=== PATIENT | female | born 1980 | race Caucasian/White ===

== ENCOUNTER → 2021-01-01 10:58 | Outpatient (BNVA) | payer OTHER, SELFPAY | PROVIDERS: Visit Provider Family Medicine | DX: Z13.6 Encounter for screening for cardiovascular disorders (principal); E66.9 Obesity, unspecified | CPT/HCPCS: 80053; 80061; 82306; 85025 ==

== ENCOUNTER → 2021-01-17 08:46 | Outpatient (BNVA) | payer OTHER, SELFPAY | PROVIDERS: Visit Provider Nurse Practitioner Family | DX: Z20.822 Contact with and (suspected) exposure to COVID-19 (principal) | CPT/HCPCS: 87635 ==

== ENCOUNTER → 2021-04-02 10:41 | Outpatient (BNVA) | payer SELFPAY | PROVIDERS: Visit Provider Family Medicine | DX: E55.9 Vitamin D deficiency, unspecified (principal) | CPT/HCPCS: 82306 ==

== ENCOUNTER → 2021-05-29 10:10 | Outpatient (BNVA) | payer OTHER, SELFPAY | PROVIDERS: PCP Family Medicine; Visit Provider Family Medicine | DX: Z00.00 Encounter for general adult medical examination without abnormal findings (principal); Z13.6 Encounter for screening for cardiovascular disorders | CPT/HCPCS: 80048; 80061; 80323; 83036 ==

== ENCOUNTER → 2022-04-29 11:10 | Outpatient (BNVA) | payer OTHER, SELFPAY | PROVIDERS: PCP Family Medicine; Visit Provider Family Medicine | DX: F33.1 Major depressive disorder, recurrent, moderate (principal); Z13.6 Encounter for screening for cardiovascular disorders | CPT/HCPCS: 80053; 80061; 80323; 83036; 85025 ==

== ENCOUNTER 2022-05-03 11:50 | Outpatient (CLI) | payer OTHER, SELFPAY ==
--- NOTE | 2022-05-03 11:58 | MM_ITS ---
WS: [id number] BILATERAL SCREENING DIGITAL TOMOSYNTHESIS MAMMOGRAM WITH CAD HISTORY: screening mammogram COMPARISON: None available. Bilateral CC and MLO views with tomosynthesis and synthetic mammography submitted. Computer aided det ection analyzed. Breast composition: The breasts are heterogeneously dense, which may obscure small masses. No suspici ous masses, microcalcifications or architectural distortion. Scattered asymmetries within each breast . Greater distribution of asymmetries in the RIGHT breast. No distortion. Benign calcifications RIGHT breast. MM/[place] [id number] IMPRESSION: BI-RADS: 2-Benign FOLLOW UP: 1 Year Follow-up
== END 2022-05-03 11:51 | disposition home or self-care (01) ==
LOC: RAD 11:50
PROVIDERS: PCP Family Medicine; Visit Provider Family Medicine
DX: Z12.31 Encounter for screening mammogram for malignant neoplasm of breast (principal)
CPT/HCPCS: 77063; 77067

== ENCOUNTER 2023-04-18 11:09 | Outpatient (CLI) | payer OTHER, SELFPAY ==
[2023-04-18 12:04] LABS: Basophils % 0.3 %; Eosinophils # 0.1 10^3/uL (0.0-0.8); Eosinophils % 1.3 %; Hematocrit 40.4 % (36-47); Lymphocytes # 1.7 10^3/uL (0.8-4.8); Lymphocytes % 23.7 %; Mean Corpuscular HGB Conc 32.7 g/dL (30-55); Mean Corpuscular Hemoglobin 27.3 pg (27-33); Mean Corpuscular Volume 83.6 fl (85-98); Mean Platelet Volume 10.1 fL (7.4-10.4); Monocytes # 0.6 10^3/uL (0.2-0.9); Monocytes % 8.7 %; Neutrophils % 65.7 %; Nucleated Red Blood Cells % 0 %; Platelet Count 273 10^3/cmm (157-399); Red Blood Count 4.83 10^6/uL (3.85-5.65); Red Cell Distribution Width 12.4 % (12.1-15.1)
[2023-04-18 12:18] LABS: Estmated Average Glucose 100; Hemoglobin A1C 5.1 % (4.0-6.0)
[2023-04-18 12:28] LABS: Alanine Aminotransferase 14 U/L (0-33); Alkaline Phosphatase 67 U/L (35-105); Anion Gap 13.2 (5-19); Aspartate Amino Transferase 16 U/L (0-32); Blood Urea Nitrogen 13 mg/dL (6-20); Calcium 8.7 mg/dL (8.5-10.5); Carbon Dioxide 22 mmol/L (22-29); Chloride 101 mmol/L (98-107); Chol HDL Ratio 4.93 mg/dL (0.0-4.40); Cholesterol 202 mg/dL (0-200); Globulin 2.9 g/dL (1.3-4.6); Glomerular Filtration Rate 69.3 mL/min (90-130); Glucose 89 mg/dL (65-115); HDL Cholesterol 41 mg/dL (60-100); LDL Cholesterol Calculated 127 mg/dL (50-129); Osmolality Calculated 276 mOsm/kg (285-295); Potassium 3.2 mmol/L (3.5-5.1); Sodium 133 mmol/L (136-145); Total Bilirubin 0.4 mg/dL (0.15-1.2); Total Protein 6.9 g/dL (6.6-8.7); Triglycerides 169 mg/dL (0-150)
[2023-04-22 18:30] LABS: Cotinine, Urine <2 ng/mL; Nicotine, Urine <2 ng/mL
== END 2023-04-18 11:10 | disposition home or self-care (01) ==
LOC: LAB 11:11
PROVIDERS: PCP Family Medicine; Visit Provider Family Medicine
DX: Z13.6 Encounter for screening for cardiovascular disorders (principal)
CPT/HCPCS: 36415; 80053; 80061; 80323; 83036; 85025

== ENCOUNTER 2023-05-05 10:02 | Outpatient (CLI) | payer OTHER, SELFPAY ==
--- NOTE | 2023-05-05 10:09 | MM_ITS ---
WS: [id number] BILATERAL SCREENING DIGITAL TOMOSYNTHESIS MAMMOGRAM WITH CAD HISTORY: screening COMPARISON: None available. Bilateral CC and MLO views with tomosynthesis and synthetic mammography submitted. Computer aided det ection analyzed. Technically difficult evaluation. Very little pectoralis muscle is included on the l ateral projections. Breast composition: There are scattered areas of fibroglandular density. No suspicious masses, microc alcifications or architectural distortion. Patchy asymmetric fibroglandular densities, greatest throu ghout the RIGHT breast. This is an asymmetric finding. No suspicious masses. Benign calcifications RI GHT breast. IMPRESSION: MM/[place] [id number] BI-RADS: 2-Benign FOLLOW UP: 1 Year Follow-up
== END 2023-05-05 10:03 | disposition home or self-care (01) ==
LOC: RAD 10:02
PROVIDERS: PCP Family Medicine; Visit Provider Family Medicine
DX: Z12.31 Encounter for screening mammogram for malignant neoplasm of breast (principal)
CPT/HCPCS: 77063; 77067

== ENCOUNTER → 2023-09-16 16:43 | Outpatient (BNVA) | payer OTHER, SELFPAY | PROVIDERS: PCP Family Medicine; Visit Provider Family Medicine | DX: R10.13 Epigastric pain (principal) | CPT/HCPCS: 87338 ==

== ENCOUNTER 2023-10-08 06:15 | Outpatient (CLI) | payer OTHER, SELFPAY ==
--- NOTE | 2023-10-08 06:15 | US_ITS ---
WS: [id number] RIGHT UPPER QUADRANT ULTRASOUND HISTORY: epigastric pain COMPARISON: None available. Liver: 15.0 cm in length. Normal size liver and echogenicity. No bile duct dilatation or mass. Portal Vein: Normal hepatopetal flow with monophasic waveform. Gallbladder: Gallbladder is contracted with shadowing. No fluid identified within the gallbladder. Th is is consistent with a contracted gallbladder around stones. The wall does appear prominent. No ang cholecystic fluid. Gallbladder wall measures up to 6 mm. CBD: 0.5 cm Pancreas: Not visualized. The body is normal. Right kidney: 9.8 cm in length. Normal size and echogenicity. No hydronephrosis or mass. Aorta and IVC: Unremarkable abdominal aorta and IVC. No ascites. US/US abdomen limited [id number] IMPRESSION: 1. Cholelithiasis. Cholelithiasis around a contracted gallbladder with wall th ickening. 2. No bile duct dilatation.
== END 2023-10-08 06:16 | disposition home or self-care (01) ==
PROVIDERS: PCP Family Medicine; Visit Provider Family Medicine
DX: K80.20 Calculus of gallbladder without cholecystitis without obstruction (principal); K82.8 Other specified diseases of gallbladder
CPT/HCPCS: 76705

== ENCOUNTER → 2023-10-27 09:17 | Outpatient (BNVA) | payer OTHER, SELFPAY | PROVIDERS: PCP Family Medicine; Visit Provider Family Medicine | DX: E87.6 Hypokalemia (principal) | CPT/HCPCS: 80053 ==

== ENCOUNTER 2023-11-11 10:22 | Day surgery (SDC) | payer OTHER, SELFPAY ==
--- NOTE | 2023-11-11 10:41 | W.PM.OPSUD ---
Surgery/Procedure H&P Update DATE OF PROCEDURE: November 11, 2023 DATE H&P PERFORMED: 11/05/23 H&P UPDATE INFORMATION: I have reviewed H&P completed within last 30 days, I have examined patient prior to procedure, No changes to prior documentation and Changes to prior documentation as noted here PLANNED PROCEDURE: Operation Date: 11/11/23 11:25 Proposed Procedures p EGD 02717, K21.9(Not Applicable) - Yasmany Paulino MD
--- NOTE | 2023-11-11 10:48 | ANES.PREANE2 ---
Pre-Anesthetic Assessment Height/Weight: Height 1.65 m Operation Date: 11/11/23 11:25 Proposed Procedures p EGD 84693, K21.9(Not Applicable) - Yasmany Paulino MD Familial anesthetic complications: None Was Beta Alyx taken within 24 hours: N/A Was Clonidine taken within 24 hours: N/A Last intake: > 8 hrs Social No alcohol and No tobacco Exam alert, oriented x 3, clear to auscultation bilaterally and regular rate & rhythm Airway Mallampati: Class II Dentition: other (missing) GI Gastroesophageal Reflux Disease Anesthetic Plan ASA status: 1 Anesthesia: MAC Risk of > 500 ml blood loss (7ml/kg in children): No Medications/Allergies Home Medications Medication Instructions Recorded Confirmed Last Taken Type levocetirizine 5 mg tablet 5 mg PO DAILY PRN Allergy Symptoms 12/04/20 11/06/23 11/10/23 History (Allergy Relief (levocetirizine)) fluticasone propionate 50 1 spray intranasal BID PRN 10/24/21 11/06/23 Unknown History mcg/actuation nasal Congestion spray,suspension pantoprazole 40 mg tablet,delayed 40 mg PO DAILY #30 tabs 10/20/23 11/06/23 11/10/23 Rx release topiramate 25 mg tablet 25 mg PO BID #60 tabs 10/27/23 11/06/23 11/10/23 Rx sumatriptan succinate 100 mg tablet See Rx Instructions .Route 11/11/23 11/11/23 11/10/23 Rx .COMPLEX #9 tabs Allergies Allergy/AdvReac Type Severity Reaction Status Date / Time No Known Allergies Allergy Verified 11/06/23 09:51 [facility] Anesthesia Medical History Moderately severe major depression Gastroesophageal reflux disease Seasonal allergies Migraine without aura, intractable [place] spotted fever Diagnosed in [id number] Preeclampsia 2008 Surgical History [place] teeth removed Family History Mother Hypertension Heart failure Father , from combination off all three comorbidities Heart failure Hypertension Cancer Pancreatic, Skin Arthritis Grandmother Cancer Mother's side: Colon, Melanoma Hypertension Grandfather , on Mother's side Hypertension Heart attack Stroke Cancer Melanoma Social History Smoking and tobacco/nicotine status: never used tobacco/nicotine Quit status (tobacco/nicotine): has quit using Year quit tobacco: 2002 Second hand smoke exposure: No Alcohol intake: current Alcohol intake frequency: holidays/special occasions only Substance/Drug Use: never Adopted: No Caregiver/support person: No Lives independently: Yes Household members: spouse and children Housing: House Marital status: Number of children: 2 Number of grandchildren: 0 Highest education level completed: Some College, No Degree service: No Current occupational status: unemployed Current occupational exposures/hazards: No Pets and animals: Yes Pets & animals: cat(s), dog(s) and other Pets & animal details: rats, mice Sexually active: Yes Current gender identity: Female Female Reproductive History Date of last menstrual period: 10/20/23 Data Anesthesia Cardiac Studies: No Data to Display
[2023-11-11 10:49] VITALS: BP 115/95; PULSE 102; RESP 17; TEMP 36.6; O2SAT 97; BMI 33.3
[2023-11-11] MEDS: sodium chloride 0.9% 1,000 ML 30 ML IV (10:58)
[2023-11-11 11:15] LABS: OR HCG Qualitative Urine Negative (Negative)
[2023-11-11 11:26] VITALS: BP 104/74; PULSE 71; TEMP 36.3; O2SAT 96
[2023-11-11 11:36] VITALS: BP 101/65; PULSE 65; RESP 18; TEMP 36.1; O2SAT 95
--- NOTE | 2023-11-11 11:46 | ANE.PACU2 ---
Inpatient post-anesthesia follow up: Vital signs: Temperature 97 F Pulse Rate 65 Respiratory Rate 18 Blood Pressure 101/65 Pulse Oximetry 98 Oxygen Delivery Me thod Room Air Oxygen Flow Rate Fraction of Inspir ed Oxygen Hydration adequate: Yes Nausea and vomiting: No Pain level: 0 Mental status: Baseline
--- NOTE | 2023-11-11 11:47 | P.ANESASSM_ITS ---
<Statement entered by Linda Iglesias - 11/13/23 06:32> created in error- see completed pre anesthesia eval. Pre-Anesthetic Assessment Height/Weight: Height 1.65 m Weight 90.718 kg Temp Pulse Resp BP Pulse Ox O2 Del Method 97 F L 65 18 101/65 95 Room Air 11/11/23 11:36 11/11/23 11:36 11/11/23 11:36 11/11/23 11:36 11/11/23 11:36 11/11/23 11:36 Preop Diagnosis: GERD Operation Date: 11/11/23 11:25 Proposed Procedures p EGD 81852, K21.9(Not Applicable) - Yasmany Paulino MD Familial anesthetic complications: none Was Beta Alyx taken within 24 hours: N/A Was Clonidine taken within 24 hours: N/A Last intake: Intake Last Liquid Date 11/10/23 Last Liquid Time 22:30 Last Solid Date 11/10/23 Last Solid Time 20:30 Social No alcohol and No tobacco Exam alert, oriented x 3 and clear to auscultation bilaterally Airway Mallampati: Class II Dentition: full History/ROS No significant history except as noted Pulmonary None reported CV/HEM None reported None reported Hepatic None reported GI Gastroesophageal Reflux Disease Metabolic None reported Medications/Allergies Home Medications Medication Instructions Recorded Confirmed Last Taken Type levocetirizine 5 mg tablet 5 mg PO DAILY PRN Allergy Symptoms 12/04/20 11/06/23 11/10/23 History (Allergy Relief (levocetirizine)) fluticasone propionate 50 1 spray intranasal BID PRN 10/24/21 11/06/23 Unknown History mcg/actuation nasal Congestion spray,suspension topiramate 25 mg tablet 25 mg PO BID #60 tabs 10/27/23 11/06/23 11/10/23 Rx pantoprazole 40 mg tablet,delayed 40 mg PO BID #60 tabs 11/11/23 Unknown Rx release sumatriptan succinate 100 mg tablet See Rx Instructions .Route 11/11/23 11/11/23 11/10/23 Rx .COMPLEX #9 tabs Allergies Allergy/AdvReac Type Severity Reaction Status Date / Time No Known Allergies Allergy Verified 11/06/23 09:51 Current Medications Generic Name Dose Route Start Last Admin Trade Name Freq PRN Reason Stop Dose Admin Sodium Chloride 1,000 mls @ 30 mls/hr 11/11/23 10:30 11/11/23 10:58 Sodium Chloride 0.9% IV 11/12/23 10:29 30 mls/hr .Q24H ADAL Administration PFSH Anesthesia Medical History Moderately severe major depression Gastroesophageal reflux disease Seasonal allergies Migraine without aura, intractable [place] spotted fever Diagnosed in [id number] Preeclampsia 2009 Surgical History [place] teeth removed Family History Mother Hypertension Heart failure Father , from combination off all three comorbidities Heart failure Hypertension Cancer Pancreatic, Skin Arthritis Grandmother Cancer Mother's side: Colon, Melanoma Hypertension Grandfather , on Mother's side Hypertension Heart attack Stroke Cancer Melanoma Social History Smoking and tobacco/nicotine status: never used tobacco/nicotine Quit status (tobacco/nicotine): has quit using Year quit tobacco: 2002 Second hand smoke exposure: No Alcohol intake: current Alcohol intake frequency: holidays/special occasions only Substance/Drug Use: never Adopted: No Caregiver/support person: No Lives independently: Yes Household members: spouse and children Housing: House Marital status: Number of children: 2 Number of grandchildren: 0 Highest education level completed: Some College, No Degree service: No Current occupational status: unemployed Current occupational exposures/hazards: No Pets and animals: Yes Pets & animals: cat(s), dog(s) and other Pets & animal details: rats, mice Sexually active: Yes Current gender identity: Female Female Reproductive History Date of last menstrual period: 10/20/23 Data Anesthesia Cardiac Studies: No Data to Display
--- NOTE | 2023-11-11 12:12 | ANE.PACU2 ---
Inpatient post-anesthesia follow up: Airway intact: Yes Vital signs: Temperature 97 F Pulse Rate 65 Respiratory Rate 18 Blood Pressure 101/65 Pulse Oximetry 95 Oxygen Delivery Me thod Room Air Oxygen Flow Rate Fraction of Inspir ed Oxygen Hydration adequate: Yes Nausea and vomiting: No Pain level: 1 Mental status: Baseline
== END 2023-11-11 12:12 | disposition home or self-care (01) ==
PROVIDERS: Student in an Organized Health Care Education/Training Program; PCP Family Medicine; Visit Provider Surgery
PROC: 0DJ08ZZ Inspection of Upper Intestinal Tract, Via Natural or Artificial Opening Endoscopic (ICD-10-PCS; CPT 43235; principal; 2023-11-11 11:25)
DX: K21.9 Gastro-esophageal reflux disease without esophagitis (principal); K29.50 Unspecified chronic gastritis without bleeding
CPT/HCPCS: 43239; 81025; 88305; 88342; J2704; J7030

== ENCOUNTER 2023-11-14 12:25 | Outpatient (CLI) | payer OTHER, SELFPAY ==
[2023-11-14] MEDS: iohexol 350 mg/mL 500 mL Btl (per mL) PO (12:39)
[2023-11-14] MEDS: iohexol 350 mg/mL 500 mL Btl (per mL) IV (12:39)
--- NOTE | 2023-11-14 13:30 | CT_ITS ---
WS: [id number] CT ABDOMEN AND PELVIS WITH CONTRAST HISTORY: abdominal pain TECHNIQUE: Imaging performed of the abdomen and pelvis with IV contrast. Single phase imaging of the abdomen. Coronal and sagittal reformats are submitted. All CT scans at [facility] use at [address] one of these dose optimization techniques: automated exposure control; mA and/or kV adjustment per patient size (includes targeted exams where dose is matched to clinical indication); or iterative re construction. IV CONTRAST: Omnipaque 350; 100 mL IV. Oral contrast: Yes DLP: 539.73 mGy.cm COMPARISON: Ultrasound 10/08/2023 Lower thorax: Lung bases are clear. Heart is normal size. No hiatal hernia. Liver/biliary system: Normal size with no intrahepatic dilatation. Gallbladder: Gallbladder is slightly contracted. Innumerable stones are present within the gallbladde r. No wall thickening. Normal common bile duct. Pancreas: Normal size pancreas and pancreatic duct. No adjacent inflammation. Spleen: Normal size spleen. No mass or infarct. Adrenal glands: Normal. Right kidney: Normal. Left kidney: Normal. Aorta: Normal. Lymphadenopathy: None. Free fluid: None. GI tract: No GI tract obstruction. Normal appendix. No significant diverticular disease. Abdominal wall: Tiny umbilical hernia containing fat. Pelvis: Uterus is slightly enlarged and vascular and globular suggesting fibroids. There is displacem ent of the endometrium to the RIGHT. LEFT fundal fibroid measures 5.1 x 3.5 cm. Normal urinary bladde r. Bones: Unremarkable. CT/CT abdomen pelvis w con* [id number] IMPRESSION: 1. Cholelithiasis without evidence for acute cholecystitis. Numerous stones ar e present in the gallbladder. 2. Normal appendix. 3. No renal obstruction. 4. Enlarged uterus. Suspect LEFT uterine fibroid.
== END 2023-11-14 12:26 | disposition home or self-care (01) ==
LOC: RAD 12:26
PROVIDERS: PCP Family Medicine; Visit Provider Surgery
DX: K80.20 Calculus of gallbladder without cholecystitis without obstruction (principal); N85.2 Hypertrophy of uterus; R10.9 Unspecified abdominal pain
CPT/HCPCS: 74177; Q9967

== ENCOUNTER 2023-12-08 06:42 | Day surgery (SDC) | payer OTHER, SELFPAY ==
--- NOTE | 2023-12-07 15:34 | P.ANESASSM_ITS ---
Pre-Anesthetic Assessment Height/Weight: Height 5 ft 5 in Preop Diagnosis: Cholecystitis Operation Date: 12/08/23 08:15 Proposed Procedures p Laparoscopic Cholecystectomy 96751, K80.20(Not Applicable) - Yasmany Paulino MD Was Beta Alyx taken within 24 hours: N/A Was Clonidine taken within 24 hours: N/A Social No alcohol and No tobacco Exam alert, oriented x 3, clear to auscultation bilaterally and regular rate & rhythm Airway Submandibular: within normal limits Cervical ROM: within normal limits Mallampati: Class III Dentition: full Anesthetic Plan ASA status: 2 Anesthesia: General Other: No prior issues with anesthesia NPO since midnight History of seasonal allergies GERD on pantoprazole Does admit to chronic migraines occasionally Denies any cardiac or pulmonary issues Recent Labs 10/26 reviewed test negative Plan for GETA Risk of > 500 ml blood loss (7ml/kg in children): Yes, adequate IV access and fluids planned Medications/Allergies Home Medications Medication Instructions Recorded Confirmed Last Taken Type levocetirizine 5 mg tablet 5 mg PO DAILY PRN Allergy Symptoms 12/04/20 12/05/23 12/07/23 History (Allergy Relief (levocetirizine)) fluticasone propionate 50 1 spray intranasal BID PRN 10/24/21 12/05/23 Unknown History mcg/actuation nasal Congestion spray,suspension pantoprazole 40 mg tablet,delayed 40 mg PO BID #60 tabs 11/11/23 12/05/23 12/07/23 Rx release sumatriptan succinate 100 mg tablet See Rx Instructions .Route 11/11/23 12/05/23 12/02/23 Rx .COMPLEX #9 tabs topiramate 25 mg tablet 25 mg PO BID 11/25/23 12/05/23 12/07/23 History Allergies Allergy/AdvReac Type Severity Reaction Status Date / Time No Known Allergies Allergy Verified 11/25/23 11:30 [facility] Anesthesia Medical History Moderately severe major depression Gastroesophageal reflux disease Seasonal allergies Migraine without aura, intractable [place] spotted fever Diagnosed in [id number] Preeclampsia 2008 Surgical History [place] teeth removed Family History Mother Hypertension Heart failure Father , from combination off all three comorbidities Heart failure Hypertension Cancer Pancreatic, Skin Arthritis Grandmother Cancer Mother's side: Colon, Melanoma Hypertension Grandfather , on Mother's side Hypertension Heart attack Stroke Cancer Melanoma Social History Smoking and tobacco/nicotine status: never used tobacco/nicotine Quit status (tobacco/nicotine): has quit using Year quit tobacco: 2002 Second hand smoke exposure: No Alcohol intake: current Alcohol intake frequency: holidays/special occasions only Substance/Drug Use: never Adopted: No Caregiver/support person: No Lives independently: Yes Household members: spouse and children Housing: House Marital status: Number of children: 2 Number of grandchildren: 0 Highest education level completed: Some College, No Degree service: No Current occupational status: unemployed Current occupational exposures/hazards: No Pets and animals: Yes Pets & animals: cat(s), dog(s) and other Pets & animal details: rats, mice Sexually active: Yes Current gender identity: Female Female Reproductive History Date of last menstrual period: 12/05/23 Data Anesthesia Cardiac Studies: No Data to Display
[2023-12-08] VITALS (11 sets, daily range): BP systolic 101–139; BP diastolic 62–89; PULSE 68–91; RESP 16–20; TEMP 36.1–36.7; O2SAT 94–99; BMI 32.1
[2023-12-08 07:17] LABS: OR HCG Qualitative Urine Negative (Negative)
[2023-12-08] MEDS: scopolamine 1.5 Patch 1 PATCH TRANSDERMA (07:22)
[2023-12-08] MEDS: sodium chloride 0.9% 1,000 ML 30 ML IV (07:23)
--- NOTE | 2023-12-08 08:32 | P.HP_ITS ---
Same Day Surgery H&P Indication for Procedure/HPI DATE OF PROCEDURE: December 08, 2023 CHIEF COMPLAINT/INDICATIONFOR SURGICAL PROCEDURE: symptomatic cholelithiasis PREOP DIAGNOSIS: Cholecystitis PLANNED PROCEDURE: Operation Date: 12/08/23 08:15 Proposed Procedures p Laparoscopic Cholecystectomy 75092, K80.20(Not Applicable) - Yasmany Paulino MD Medications/Allergies* Home Medications Medication Instructions Recorded Confirmed Type levocetirizine 5 mg tablet 5 mg PO DAILY PRN Allergy Symptoms 12/04/20 12/05/23 History (Allergy Relief (levocetirizine)) fluticasone propionate 50 1 spray intranasal BID PRN 10/24/21 12/05/23 History mcg/actuation nasal Congestion spray,suspension topiramate 25 mg tablet 25 mg PO BID 11/25/23 12/05/23 History Allergies/Adverse Reactions Allergy/AdvReac Type Severity Reaction Status Date / Time No Known Allergies Allergy Verified 11/25/23 11:30 Current Medications: Generic Name Dose Route Start Last Admin Trade Name Freq PRN Reason Stop Dose Admin Sodium Chloride 1,000 mls @ 30 mls/hr 12/08/23 07:00 12/08/23 07:23 Sodium Chloride 0.9% IV 12/09/23 06:59 30 mls/hr .Q24H ADAL Administration Pertinent History/Comorbid Conditions* Medical History (Updated 11/21/23 @ 10:13 by Yasmany Paulino MD) Moderately severe major depression Gastroesophageal reflux disease Seasonal allergies Migraine without aura, intractable [place] spotted fever Diagnosed in [id number] Preeclampsia 2008 Surgical History (Updated 12/04/20 @ 13:30 by Cynthia Cates DO) [place] teeth removed Family History (Updated 12/04/20 @ 13:21 by Carmen Perez LPN) Father, from combination off all three comorbidities Grandfather, on Mother's side Heart failure Mother Father Arthritis Father Heart attack Grandfather Cancer Father Pancreatic, Skin Grandmother Mother's side: Colon, Melanoma Grandfather Melanoma Hypertension Mother Father Grandmother Grandfather Stroke Grandfather Social History Smoking and tobacco/nicotine status: never used tobacco/nicotine Quit status (tobacco/nicotine): has quit using Year quit tobacco: 2002 Second hand smoke exposure: No Alcohol intake: current Alcohol intake frequency: holidays/special occasions only Substance/Drug Use: never Adopted: No Caregiver/support person: No Lives independently: Yes Household members: spouse and children Housing: House Marital status: Number of children: 2 Number of grandchildren: 0 Highest education level completed: Some College, No Degree service: No Current occupational status: unemployed Current occupational exposures/hazards: No Pets and animals: Yes Pets & animals: cat(s), dog(s) and other Pets & animal details: rats, mice Sexually active: Yes Current gender identity: Female Pertinent Exam Findings alert, oriented x 3, clear to auscultation bilaterally and regular rate & rhythm Recommendations Surgery/Procedure today Coding Level of Care Code Acute Code for Chg Fwd
[2023-12-08] MEDS: ceFAZolin 2,000 mg SDV 2000 MG IVP (08:52)
--- NOTE | 2023-12-08 10:50 | PC.NURSE ---
updated patient's family at [id number]
[2023-12-08] MEDS: lidocaine-epi 1% 20 mL INJ INJECTION (12:09)
[2023-12-08] MEDS: BUPivacaine 0.25% INJ 10 mL INJECTION (12:09)
--- NOTE | 2023-12-08 12:20 | P.OP_ITS ---
Operative Report Date of procedure: December 08, 2023 Pre-op diagnosis: Symptomatic cholelithiasis Post-op diagnosis: Symptomatic cholelithiasis, chronic cholecystitis Post-op findings: Severe adhesions from the omentum to the gallbladder, causing encasing of the gallbladder portion that was attached to the liver. Upper one third of the gallbladder was not attached to the liver. Severe adhesions and inflammation noted to the level of the hepatocystic triangle making dissection almost impossible Procedure done: Laparoscopic subtotal cholecystectomy Surgeon: Yasmany Paulino MD Soubrette: ROBERTO OR STaff Estimated blood loss: 15 Complications: none Brief History: 43-year-old female with chronic abdominal pain who presented to my clinic for evaluation, after extensive workup which was positive for gallstones with side to proceed to the OR. Procedure: Patient was brought into the OR, patient was placed in the supine position and general anesthesia was given. The abdomen was prepped and draped in the usual sterile fashion. The abdomen was accessed via infraumbilical incision with an open technique, access on trocar was placed and fixed to the fascia with #0 Vicryl, initial pneumoperitoneum was obtained and laparoscopy showed no evidence of visceral injury during entry. Additional 5 mm trocars were placed in the epigastrium right upper quadrant and right flank positions. The gallbladder was identified on the right upper quadrant under the liver and it was noted to be encased by omentum, additional lysis was done with blunt and sharp dissection until the gallbladder fundus was able to be visualized and the gallbladder was elevated, the body of the gallbladder appear slightly contracted and there was significant inflammation surrounding the gallbladder, anatomy was not clear at the level of the infundibulum making dissection very difficult, I therefore decided to start my dissection with the lateral attachments of the gallbladder to the liver to allow for better exposure. Despite significant dissection both on the medial and lateral direction on the size of the gallbladder the visualization of the hepatocystic triangle was not achieved and therefore I decided to proceed with a top-down approach I started by removing the gallbladder from the liver bed with careful dissection with electrocautery, was able to remove the gallbladder down all the way down to the infundibulum, at this point several structures were noted entering to the gallbladder, I attempted additional dissection from the front end to try to individualize the cystic duct but due to severe inflammation this was not possible. I therefore took the decision to proceed with a subtotal cholecystectomy to prevent any ductal or arterial injury by proceeding with additional dissection. I did this by transecting the gallbladder at the level of the infundibulum using a 45 mm blue load Endo GERARDO stapler, to this I replaced the 5 mm epigastric trocar for a 12 mm trocar. After the gallbladder was transected, very evaluated liver bed there was no evidence of injury, there was no evidence of bile leak. There was some small amount of oozing from the staple line that was controlled with 5 mm clips. The specimen was then retrieved in an Endo Catch bag via the umbilical trocar site. The abdominal cavity was suctioned and irrigated with saline. I then proceeded to remove the epigastric trocar and the fascia was closed with a #0 Vicryl in a UR 6 needle, intra-abdominal visualization was continued to ensure that no visceral injury was done during closure. I then proceeded to remove the umbilical trocar and the trocar site was closed with a #0 Vicryl using a Simone-Cornelia suture passer. This was done under direct visualization. The right upper quadrant trocar was removed under direct visualization, the right flank trocar was used to evacuate the pneumoperitoneum and subsequently removed. The wounds were then irrigated, local anesthesia was infiltrated and the wounds were closed using #4-0 Monocryl for the skin. Kirvin parmar was then applied. At the end of the procedure all counts were correct, the patient tolerated well the procedure and was transferred to the PACU in stable condition.
[2023-12-08] MEDS: ondansetron 2 mg/ML SDV 2 mL 4 MG IVP (12:58)
--- NOTE | 2023-12-08 14:33 | ANE.PACU2 ---
Inpatient post-anesthesia follow up: Airway intact: Yes Vital signs: Temperature 97.6 F Pulse Rate 69 Respiratory Rate 17 Blood Pressure 120/87 Pulse Oximetry 99 Oxygen Delivery Me thod Room Air Oxygen Flow Rate Fraction of Inspir ed Oxygen Hydration adequate: Yes Nausea and vomiting: No Pain level: 1 Mental status: Baseline
== END 2023-12-08 14:33 | disposition home or self-care (01) ==
PROVIDERS: Student in an Organized Health Care Education/Training Program; PCP Family Medicine; Visit Provider Surgery
PROC: 0FT44ZZ Resection of Gallbladder, Percutaneous Endoscopic Approach (ICD-10-PCS; CPT 47562; principal; 2023-12-08 08:05)
DX: K80.10 Calculus of gallbladder with chronic cholecystitis without obstruction (principal); Z87.891 Personal history of nicotine dependence
CPT/HCPCS: 47562; 81025; 88304; J0131; J0690; J1100; J1170; J2371; J2405; J2704; J3010; J3490; J7030

== ENCOUNTER → 2024-02-10 08:43 | Outpatient (BNVA) | payer OTHER, SELFPAY | PROVIDERS: PCP Family Medicine; Visit Provider Nurse Practitioner Women's Health | DX: N92.6 Irregular menstruation, unspecified (principal); N92.0 Excessive and frequent menstruation with regular cycle | CPT/HCPCS: 76830 ==

== ENCOUNTER → 2024-05-04 10:23 | Outpatient (BNVA) | payer OTHER, SELFPAY | PROVIDERS: PCP Family Medicine; Visit Provider Family Medicine | DX: Z00.00 Encounter for general adult medical examination without abnormal findings (principal) | CPT/HCPCS: 80053; 80061; 80323; 83036 ==

== ENCOUNTER → 2025-01-25 13:14 | Outpatient (BNVA) | payer OTHER, SELFPAY | PROVIDERS: PCP Family Medicine; Visit Provider Nurse Practitioner Women's Health | DX: Z12.4 Encounter for screening for malignant neoplasm of cervix (principal) | CPT/HCPCS: 87624 ==

== ENCOUNTER 2025-02-14 08:59 | Outpatient (CLI) | payer OTHER, SELFPAY ==
--- NOTE | 2025-02-14 09:00 | MM_ITS ---
WS: [id number] BILATERAL 3D TOMOSYNTHESIS DIGITAL SCREENING MAMMOGRAPHY WITH CAD CLINICAL INFORMATION: Z12.39 - Encounter for other screening for malignant neop... HISTORY: Screening mammogram. No current complaints. COMPARISON: 2023 TECHNIQUE: Bilateral CC and MLO views. FINDINGS: The breasts are composed of heterogeneous fibroglandular density tissue, which can limit the detection of small underlying mass lesions. No suspicious mass, asymmetry, calcifications, or architectural distortion. No evidence of malignancy. [place] centered calcification RIGHT breast MM/MM scr tomosynthesis [id number] IMPRESSION: DENSITY: The breasts are heterogeneously dense, which may obscure small masses. BI-RADS: 2 - Benign FOLLOW UP: 1 Year Follow-up Recommend return to annual screening mammography.
== END 2025-02-14 09:00 | disposition home or self-care (01) ==
LOC: RAD 09:01
PROVIDERS: PCP Family Medicine; Visit Provider Nurse Practitioner Women's Health
DX: Z12.31 Encounter for screening mammogram for malignant neoplasm of breast (principal); R92.333 Mammographic heterogeneous density, bilateral breasts; R92.323 Mammographic fibroglandular density, bilateral breasts; R92.1 Mammographic calcification found on diagnostic imaging of breast
CPT/HCPCS: 77063; 77067